=== PATIENT | male | born 1965 | race Caucasian/White ===

== ENCOUNTER 2016-11-01 11:51 | Emergency (ER) | payer MEDICAID ==
[2016-05-02 05:48] VITALS: BMI 29.7
[~2016-11-01 11:51] MED LIST: NEURONTIN 300300 MG PO; PERCOCET 7.5/321 TAB PO
== END 2016-11-01 14:58 | disposition home or self-care (01) ==
LOC: D.ER 11:51
DX: R11.2 Nausea with vomiting, unspecified (principal)

== ENCOUNTER 2016-11-08 02:35 | Emergency (ER) | payer MEDICAID ==
[2016-05-02 05:48] VITALS: BMI 29.7
[2016-11-08 04:05] LABS: BASOPHILS 0.9 % (0-2); EOSINOPHILS 3.6 % (0-7); HEMATOCRIT 46.9 % (42.0-54.0); HEMOGLOBIN 16.8 g/dL (13.5-17.5); IMMATURE GRANULOCYTES 0.5 % (0-5); LYMPHOCYTES 40.3 % (15-50); MCH 34.1 pg (26.0-34.0); MCHC 35.8 g/dL (31.0-37.0); MCV 95.1 fL (80.0-100.0); MEAN PLATELET VOLUME 9.1 fL (7.4-10.4); NEUTROPHILS 46.7 % (40-80); PLATELET COUNT 124 10x3/uL (130-400); RBC 4.93 10x6/uL (4.20-6.10); RDW 13.1 % (11.5-14.5); WBC 5.6 10x3/uL (4.8-10.8)
[2016-11-08 04:19] LABS: ALBUMIN 4.2 g/dL (3.4-5.0); ALKALINE PHOSPHATASE 78 U/L (46-116); ALT (SGPT) 130 U/L (10-68); AMYLASE - SERUM 141 U/L (25-115); BILIRUBIN - TOTAL 1.37 mg/dL (0.2-1.3); CALC OSMOLALITY 282 mosm/kg (275-300); CARBON DIOXIDE 26.4 mmol/L (21.0-32.0); CHLORIDE - SERUM 103 mmol/L (98-107); GLUCOSE 93 mg/dL (74-106); LIPASE 220 U/L (73-393); POTASSIUM - SERUM 3.7 mmol/L (3.5-5.1); PROTEIN - SERUM 8.1 g/dL (6.4-8.2); SODIUM 140 mmol/L (136-145); UREA NITROGEN 24 mg/dL (7-18); eGFR NON AFRICAN AMERICAN 83 mL/min (90-120)
[2016-11-08 04:24] LABS: CALCIUM 8.8 mg/dL (8.5-10.1)
== END 2016-11-08 06:15 | disposition home or self-care (01) ==
LOC: D.ER 02:35
PROVIDERS: Emergency Medicine
DX: R11.10 Vomiting, unspecified (principal); M54.5 Low back pain; F17.200 Nicotine dependence, unspecified, uncomplicated

== ENCOUNTER → 2016-12-07 13:15 | Outpatient (CLI) | payer MEDICAID ==
[2016-05-02 05:48] VITALS: BMI 29.7
== END | disposition home or self-care (01) ==
LOC: D.CT 13:15
DX: Z87.820 Personal history of traumatic brain injury (principal)

== ENCOUNTER 2017-02-11 14:04 | Emergency (ER) | payer MEDICAID ==
[2016-05-02 05:48] VITALS: BMI 29.7
== END 2017-02-11 15:17 | disposition home or self-care (01) ==
LOC: D.ER 14:04
DX: M79.661 Pain in right lower leg (principal); W19.XXXA Unspecified fall, initial encounter; Y93.89 Activity, other specified; Y92.89 Other specified places as the place of occurrence of the external cause; F17.200 Nicotine dependence, unspecified, uncomplicated

== ENCOUNTER 2017-02-19 03:01 | Emergency (ER) | payer MEDICAID ==
[2016-05-02 05:48] VITALS: BMI 29.7
[2017-02-19 03:37] LABS: UDS - AMPHET NEGATIVE QUAL (NEGATIVE); UDS - BARB NEGATIVE QUAL (NEGATIVE); UDS - BENZO POSITIVE QUAL (NEGATIVE); UDS - COCAINE NEGATIVE QUAL (NEGATIVE); UDS - METH NEGATIVE QUAL (NEGATIVE); UDS - OPIATE NEGATIVE QUAL (NEGATIVE); UDS - PCP NEGATIVE QUAL (NEGATIVE); UDS - THC NEGATIVE QUAL (NEGATIVE)
[2017-02-19 03:42] LABS: BASOPHILS 0.3 % (0-2); EOSINOPHILS 2.2 % (0-7); HEMATOCRIT 41.4 % (42.0-54.0); HEMOGLOBIN 14.6 g/dL (13.5-17.5); IMMATURE GRANULOCYTES 0.5 % (0-5); LYMPHOCYTES 17.7 % (15-50); MCH 35.7 pg (26.0-34.0); MCHC 35.3 g/dL (31.0-37.0); MCV 101.2 fL (80.0-100.0); MEAN PLATELET VOLUME 9.5 fL (7.4-10.4); MONOCYTES 11.7 % (2-11); NEUTROPHILS 67.6 % (40-80); PLATELET COUNT 126 10x3/uL (130-400); RBC 4.09 10x6/uL (4.20-6.10); RDW 12.3 % (11.5-14.5); WBC 5.9 10x3/uL (4.8-10.8)
[2017-02-19 03:58] LABS: ALBUMIN 4.2 g/dL (3.4-5.0); ANION GAP 15.4 mmol/L (8-16); BILIRUBIN - TOTAL 2.3 mg/dL (0.2-1.3); CALCIUM 9.6 mg/dL (8.5-10.1); CARBON DIOXIDE 22.3 mmol/L (21.0-32.0); CREATININE - SERUM 1.1 mg/dL (0.6-1.3); MAGNESIUM - SERUM 1.7 mg/dL (1.8-2.4); POTASSIUM - SERUM 3.7 mmol/L (3.5-5.1); PROTEIN - SERUM 8.1 g/dL (6.4-8.2)
== END 2017-02-19 04:25 | disposition home or self-care (01) ==
LOC: D.ER 03:01
PROVIDERS: Emergency Medicine
DX: F23 Brief psychotic disorder (principal); F10.239 Alcohol dependence with withdrawal, unspecified; Z86.73 Personal history of transient ischemic attack (TIA), and cerebral infarction without residual deficits

== ENCOUNTER 2017-03-06 10:11 | Emergency (ER) | payer MEDICAID ==
[2016-05-02 05:48] VITALS: BMI 29.7
== END 2017-03-06 13:01 | disposition home or self-care (01) ==
LOC: D.ER 10:11
DX: M79.661 Pain in right lower leg (principal); S80.11XA Contusion of right lower leg, initial encounter; V28.0XXA Motorcycle driver injured in noncollision transport accident in nontraffic accident, initial encounter; Y93.89 Activity, other specified; Y92.019 Unspecified place in single-family (private) house as the place of occurrence of the external cause

== ENCOUNTER 2017-03-14 18:16 | Emergency (ER) | payer MEDICAID ==
[2016-05-02 05:48] VITALS: BMI 29.7
== END 2017-03-14 19:25 | disposition left against medical advice (07) ==
LOC: D.ER 18:16
DX: M79.661 Pain in right lower leg (principal)

== ENCOUNTER 2017-03-18 23:37 | Emergency (ER) | payer MEDICAID ==
[2016-05-02 05:48] VITALS: BMI 29.7
[2017-03-19 00:42] LABS: BASOPHILS 0.3 % (0-2); HEMATOCRIT 42.6 % (42.0-54.0); HEMOGLOBIN 15.4 g/dL (13.5-17.5); IMMATURE GRANULOCYTES 0.2 % (0-5); LYMPHOCYTES 41.1 % (15-50); MCH 35.7 pg (26.0-34.0); MCHC 36.2 g/dL (31.0-37.0); MCV 98.8 fL (80.0-100.0); MEAN PLATELET VOLUME 9.3 fL (7.4-10.4); MONOCYTES 7.7 % (2-11); NEUTROPHILS 47.7 % (40-80); PLATELET COUNT 128 10x3/uL (130-400); RBC 4.31 10x6/uL (4.20-6.10); WBC 5.9 10x3/uL (4.8-10.8)
[2017-03-19 00:59] LABS: ALBUMIN 4.3 g/dL (3.4-5.0); ALKALINE PHOSPHATASE 91 U/L (46-116); ALT (SGPT) 113 U/L (10-68); CALC OSMOLALITY 274 mosm/kg (275-300); CALCIUM 8.8 mg/dL (8.5-10.1); CARBON DIOXIDE 20.5 mmol/L (21.0-32.0); CHLORIDE - SERUM 102 mmol/L (98-107); CREATININE - SERUM 0.9 mg/dL (0.6-1.3); GLUCOSE 141 mg/dL (74-106); POTASSIUM - SERUM 3.6 mmol/L (3.5-5.1); SODIUM 136 mmol/L (136-145); UREA NITROGEN 14 mg/dL (7-18); eGFR NON AFRICAN AMERICAN > 90 mL/min (90-120)
== END 2017-03-19 01:15 | disposition home or self-care (01) ==
LOC: D.ER 23:37
PROVIDERS: Nurse Practitioner Acute Care
DX: R00.2 Palpitations (principal); M54.9 Dorsalgia, unspecified; F17.200 Nicotine dependence, unspecified, uncomplicated

== ENCOUNTER 2017-04-27 07:23 | Emergency (ER) | payer MEDICAID ==
[2016-05-02 05:48] VITALS: BMI 29.7
== END 2017-04-27 09:02 | disposition home or self-care (01) ==
LOC: D.ER 07:23
DX: L73.2 Hidradenitis suppurativa (principal); F17.200 Nicotine dependence, unspecified, uncomplicated